=== PATIENT | female | born 1950 | race Caucasian/White ===

== ENCOUNTER → 2020-10-19 | Outpatient (CLI) | payer OTHER, MEDICARE ==
[~2020-10-19] MED LIST: ALLEGRA-D 12 H1 EAC1 PO; HAIR VITAMIN1 EACH; LIPITOR10 MG PO; NAPROXEN375 MG PO; NORVASC2.5 MG PO; OMEPRAZOLE 20 M20 M1 PO; PREDNISONE 10 M10 MG PO; PREDNISONE 20 M20 MG PO; PRINIVIL10 MG PO; RITALIN20 MG PO
== END ==
LOC: LAB 13:35
PROVIDERS: ATTEND Anesthesiology
DX: Z01.812 Encounter for preprocedural laboratory examination (principal); Z20.828 Contact with and (suspected) exposure to other viral communicable diseases

== ENCOUNTER → 2020-11-30 | Outpatient (CLI) | payer OTHER, MEDICARE | LOC: LAB 08:50 | PROVIDERS: ATTEND Anesthesiology | DX: Z01.812 Encounter for preprocedural laboratory examination (principal); Z20.822 Contact with and (suspected) exposure to COVID-19 ==